=== PATIENT | female | born 1970 | race Caucasian/White ===

== ENCOUNTER 2016-10-10 16:19 | Emergency (ER) | payer OTHER | END 2016-10-10 17:45 | disposition home or self-care (01) | LOC: ER 16:19 | DX: R05 Cough (principal); H10.31 Unspecified acute conjunctivitis, right eye; T46.4X5A Adverse effect of angiotensin-converting-enzyme inhibitors, initial encounter; I10 Essential (primary) hypertension; Z79.899 Other long term (current) drug therapy; R62.50 Unspecified lack of expected normal physiological development in childhood ==